=== PATIENT | female | born 2000 | race Caucasian/White ===

== ENCOUNTER 2024-04-08 11:06 | Emergency (ER) | payer OTHER, SELFPAY ==
[2024-04-08 11:11] VITALS: BP 118/84
[2024-04-08 12:07] VITALS: BP 117/76
[2024-04-08 12:13] VITALS: BMI 21.1
--- NOTE | 2024-04-08 12:43 | ED.GENMED ---
History of Present Illness
General
Chief Complaint: Breathing Problem
Time Seen by Provider: 04/08/24 11:50
History of Present Illness
History of Present Illness:
23-year-old female presents the emergency department for evaluation of persistent productive cough for the past 3 weeks. She has taken 2 courses of amoxicillin without improvement. She reports exertional shortness of breath and general fatigue.
No chest pain or vomiting. She does vape nicotine.
Review of Systems
Review of Systems
Allergies reviewed?: Yes
All Other Systems: ROS reviewed and negative except as documented in HPI and ROS
Phy Exam
Physical Exam
Physical Exam:
GEN: Well appearing, NAD, WDWN
HEENT: Oral mucosa moist, no scleral icterus
Cardiac: Mildly tachycardic, regular
Lung: No respiratory distress, no tachypnea, expiratory wheezes and rales heard prominently at the bases with scattered to the upper barrow bilaterally
MSK: No gross deformity or injuries
Skin: Good color, no pallor or jaundice, no rashes
Neuro: AO x3, moves all extremities freely
Psych: Calm, cooperative
Course
Orders/Labs/Results
Orders:
Orders
04/08/24 12:06
Chest [CR Chest - 2 Views ] Urgent
Comment:
Reason For Exam: cough
Vital Signs
Initial and Last Documented VS:
Initial Vital Signs
Temp Pulse Resp BP Pulse Ox
97.8 F 126 18 118/84 93
04/08/24 11:11 04/08/24 11:11 04/08/24 11:11 04/08/24 11:11 04/08/24 11:11
Last Documented Vital Signs
Temp Pulse Resp BP Pulse Ox
97.8 F 112 15 117/76 94
04/08/24 11:11 04/08/24 12:13 04/08/24 12:13 04/08/24 12:07 04/08/24 12:08
MDM/Problems Addressed
MDM/Problems Addressed:
Clinical findings most likely home office representative of mycoplasma pneumonia given the persistent not improving symptoms particular given the lack of improvement of oxacillin. Will start the patient on azithromycin and DC amoxicillin, will add
corticosteroids due to the coarse wheezing on lung exam.
*Critical Care Note
Total Time (30-74mins, 75-104mins- exclusive of procedures): Not Applicable
ED Attending Note
-
Portions of this chart may have been created with voice recognition software.� Occasional wrong word or��sound alike� substitutions may have occurred due to the inherent limitations of voice recognition software.
Discharge Plan
Departure
Patient Disposition: Home (Routine Discharge)
Date of Disposition: 04/08/24
Time of Disposition: 12:43
Patient with high blood pressure during this ER visit?: No
Discharge Problem:
Atypical pneumonia
Instructions: Atypical Pneumonia (Mycoplasma and Viral) (DC)
Prescriptions:
New
doxycycline hyclate 100 mg capsule
100 mg PO BID 5 Days Qty: 10 0RF
methylprednisolone [Medrol (Harris)] 4 mg tablets,dose pack
See Rx Instructions .ROUTE .COMPLEX Qty: 21 0RF
Rx Instructions:
orally per package directions
No Action
PNV cmb#95-ferrous fumarate-FA [] 1 EACH tablet
1 ea PO Daily
acetaminophen 325 MG tablet
650 mg PO Q4HPRN PRN (Reason: mild pain) 0RF
sennosides-docusate sodium 1 TABLET tablet
1 tab PO DAILYPRN PRN (Reason: constipation) 0RF
ibuprofen 600 MG tablet
600 mg PO Q4HPRN PRN (Reason: moderate pain/cramps) 0RF
Referrals:
Kiesha Swenson MD [Family Provider] -
Interventions
Interventions:
*Risk Screen - Suicide Last Done: 04/08/24 11:11
*General Assessment Last Done: 04/08/24 11:11
*Neglect/Abuse Screening Last Done: 04/08/24 11:11
*Nursing Disposition Last Done: 04/08/24 13:10
ED- Cardiac Assessment Last Done: 04/08/24 12:13
ED- Pulmonary Assessment Last Done: 04/08/24 12:13
Discharge Date and Time
Discharge Date/Time: 04/08/24 13:10
Print Language: BENGALI
== END 2024-04-08 13:10 | disposition home or self-care (01) ==
LOC: EMR 11:06
PROVIDERS: EMERGENCY PHYSICIAN Student in an Organized Health Care Education/Training Program; FAMILY PHYSICIAN Family Medicine
DX: J18.9 Pneumonia, unspecified organism (principal)
CPT/HCPCS: 99283; 71046